=== PATIENT | female | born 1960 | race Hispanic/Latino ===

== ENCOUNTER → 2020-05-16 | Outpatient (CLI) | payer BC | END | disposition home or self-care (01) | LOC: RAH 13:06 | PROVIDERS: ATTEND Internal Medicine | DX: I25.10 Atherosclerotic heart disease of native coronary artery without angina pectoris (principal); I10 Essential (primary) hypertension | CPT/HCPCS: 71046 ==

== ENCOUNTER → 2020-05-30 | Outpatient (CLI) | payer BC ==
[~2020-05-30] MED LIST: CLOP75TA32 PO; DULA1.5P SQ; DULO60CA44 PO; FURO-152 PO; GLYB1TAB32 PO; HYDR-4458 PO; INDO50CA97 PO; ISOS60TA77 PO; MELO15TA12 PO; METO50TA18 PO; OMEP40CA13 PO; RAMI5CAP66 PO; ROSU20TA31 PO; SERT-439 PO
[2020-05-30] MEDS: REGADENOSON 0.4 MG/5 ML PF SYG IVP SCH (11:36)
== END | disposition home or self-care (01) ==
LOC: SHCH 09:16
PROVIDERS: ATTEND Internal Medicine Cardiovascular Disease
DX: I25.810 Atherosclerosis of coronary artery bypass graft(s) without angina pectoris (principal)
CPT/HCPCS: 78452; 93017; A9500 ×2; J2785; 96374

== ENCOUNTER 2020-06-08 06:00 | Day surgery (SDC) | payer BC ==
[2020-06-06 13:44] LABS: BASOPHILS % (AUTO) 0.3 % (0.0-5.0); EOSINOPHILS % (AUTO) 0.3 % (0.0-8.0); HEMATOCRIT 47.3 % (36-48); LYMPHOCYTES % (AUTO) 14.5 % (21.0-51.0); MEAN CORPUSCULAR HEMOGLOBIN 27.5 pg (27.0-33.0); MEAN CORPUSCULAR HGB CONC 32.6 g/dL (32.0-36.0); MEAN CORPUSCULAR VOLUME 84.5 fL (79-99); MONOCYTES % (AUTO) 6.6 % (3.0-13.0); NEUTROPHILS % (AUTO) 77.7 % (40.0-77.0); PLATELET COUNT (AUTO) 480 K/uL (130-400); RED CELL DISTRIBUTION WIDTH 13.2 % (11.0-15.5); WHITE BLOOD COUNT (AUTO) 11.9 K/uL (4.8-10.8)
[2020-06-06 13:48] LABS: APPEARANCE,URINE Clear (CLEAR); BILIRUBIN,URINE Negative (NEGATIVE); COLOR,URINE Dark Yellow (YELLOW); GLUCOSE, URINE (UA) >=1000 mg/dL (NEGATIVE); KETONES,URINE Trace mg/dL (NEGATIVE); LEUKOCYTE ESTERASE ,URINE Negative (NEGATIVE); NITRATE,URINE Negative (NEGATIVE); OCCULT BLOOD,URINE Negative (NEGATIVE); PH,URINE 5.5 (5.0-8.0); PROTEIN,URINE POS 2+ mg/dL (NEGATIVE)
[2020-06-06 13:56] LABS: CREATININE 1.2 mg/dL (0.5-1.5); POTASSIUM 4.5 mmol/L (3.5-5.1)
[2020-06-06 13:57] LABS: INR 0.97 (0.85-1.15); PROTHROMBIN TIME 10.4 SEC (9.6-11.6)
[2020-06-06 13:59] LABS: PARTIAL THROMBOPLASTIN TIME 26.4 SEC (26.3-35.5)
[2020-06-06 14:26] LABS: BACTERIA,URINE Rare /HPF (None Seen); RBC,URINE 0-1 /HPF (0-1); SQUAMOUS EPITHELIAL CELL,UR Rare /HPF (0-2)
[2020-06-07 10:00] VITALS: BP 126/73
[2020-06-08] VITALS (9 sets, daily range): BP systolic 104–134; BP diastolic 52–67
[~2020-06-08] VITALS: Ht 157.5 cm; Wt 86.0 kg
[~2020-06-08 06:00] MED LIST changes: +ISOS60TA4 PO; -ISOS60TA77 PO; -SERT-439 PO; +SERT50TA12 PO; +SODIUM CHLORIDE 0.9% 500ML 500 ML IV SCH
[2020-06-08] MEDS ORDERED: SODIUM CHLORIDE 0.9% 1000ML 1,000 ML IV ONE (07:06)
[2020-06-08] MEDS ORDERED: HEPARIN SODIUM 1000UNIT/ML 10ML VIAL ONE (07:10)
[2020-06-08] MEDS ORDERED: IOHEXOL 350 MG/ML 100ML INFUS..BTL IV ONE (07:10)
[2020-06-08] MEDS ORDERED: IOHEXOL-350 75 ML VIAL IV ONE (07:10)
[2020-06-08] MEDS ORDERED: NITROGLYCERIN 2 MG/VIAL VIAL IV ONE (07:10)
[2020-06-08] MEDS ORDERED: NICARDIPINE HCL 25 MG/10 ML ML IV ONE (07:10)
[2020-06-08] MEDS ORDERED: MIDAZOLAM HCL 1 MG/ML 2ML VIAL ONE (07:11)
[2020-06-08] MEDS ORDERED: LIDOCAINE HCL 2% 20ML ONE (07:11)
[2020-06-08] MEDS ORDERED: FENTANYL CITRATE PF 50 MCG/1 ML 2ML VIAL ONE (07:11)
[2020-06-08] MEDS ORDERED: METOCLOPRAMIDE 10 MG TABLET PO SCH (07:30)
[2020-06-08] MEDS ORDERED: CLOTRIMAZOLE/BETAMETHASONE DIP 45 GM CREAM.GM. TP SCH (09:00)
[2020-06-08] MEDS ORDERED: CLOBETASOL PROPIONATE TP SCH (09:00)
== END 2020-06-08 12:00 | disposition home or self-care (01) ==
LOC: DAH 06:00
PROVIDERS: ATTEND Internal Medicine
DX: I25.10 Atherosclerotic heart disease of native coronary artery without angina pectoris (principal); I25.82 Chronic total occlusion of coronary artery; I10 Essential (primary) hypertension; E11.9 Type 2 diabetes mellitus without complications; E78.00 Pure hypercholesterolemia, unspecified; E78.5 Hyperlipidemia, unspecified; Z95.5 Presence of coronary angioplasty implant and graft; Z83.3 Family history of diabetes mellitus; Z82.49 Family history of ischemic heart disease and other diseases of the circulatory system; Z79.84 Long term (current) use of oral hypoglycemic drugs; Z79.899 Other long term (current) drug therapy; Z98.890 Other specified postprocedural states; Z79.82 Long term (current) use of aspirin
CPT/HCPCS: 36415; 71045; 80048; 81001; 82948 ×2; 85025; 85610; 85730; 93005; 93455; A4215; A4216; A4221; A4222; A4223 ×3; A4606; A4663; C1760; C1894 ×2; J1644; J2250; J3010; J3490 ×2; J7030; Q9965 ×2; Q9967 ×2; 96360; 96361; 99156; 99157